=== PATIENT | female | born 1985 | race Two or more races ===

== ENCOUNTER 2018-10-09 23:20 | Emergency (ER) | payer BC, OTHER ==
[2018-10-09 23:43] VITALS: BP 101/62; PULSE 96; TEMP 98
--- NOTE | 2018-10-09 23:50 | PDOC ---
History of Present Illness - General Chief Complaint: Syncope/Near Syncope Stated Complaint: NEAR SYNCOPE Time Seen by Provider: 10/09/18 23:50 History Source: Patient Exam Limitations: No Limitations - History of Present Illness Initial Comments: 10/10/18 00:51 33 yo F with no significant PMhx presents after syncopal episode at home. She states that she was eating dinner when she went to pass a plate to dog when she was bitten. She has small laceration on hand. She proceeded to go to bathroom she felt light headed and passed out. She denies head trauma. She was out for a few seconds and EMS was called. Upon arrival during the interview she felt lightheaded again but no LOC. Denies CP,MALONE, SOB, abdominal pain, nausea or vomiting. Timing/Duration: 1-3 hours Past History - Past Medical History Allergies/Adverse Reactions: Allergies Allergy/AdvReac Type Severity Reaction Status Date / Time No Known Allergies Allergy Verified 10/09/18 23:23 Home Medications: Ambulatory Orders No Home Medications 0 dose .ROUTE UTDICT 05/04/13 Amoxicillin/Potassium Clav [Augmentin 875-125 Tablet] 1 each PO BID #14 tablet 10/10/18 Anemia: No Asthma: No Cancer: No Cardiac Disorders: No CVA: No COPD: No CHF: No Dementia: No Diabetes: No GI Disorders: No Disorders: No HTN: No Hypercholesterolemia: No Liver Disease: No Seizures: No Thyroid Disease: No - Surgical History Abdominal Surgery: Yes (GASTRIC SLEEVE) Appendectomy: No Cardiac Surgery: No Cholecystectomy: No GI Surgery: Yes (GASTRIC SLEEVE) Lung Surgery: No Neurologic Surgery: No Orthopedic Surgery: No - Suicide/Smoking/Psychosocial Hx Smoking History: Never smoked Hx Alcohol Use: No Substance Use Type: None Hx Substance Use Treatment: No Review of Systems - Review of Systems Able to Perform ROS?: Yes Is the patient limited Belarusian proficient: No Constitutional: No: Diaphoresis, Fever, Loss of Appetite HEENTM: No: Recent change in vision Respiratory: No: Cough, Orthopnea, Shortness of Breath, SOB with Exertion Cardiac (ROS): No: Chest Pain, Edema, Chest Tightness ABD/GI: No: Constipated, Diarrhea, Vomiting Musculoskeletal: No: Muscle Weakness Neurological: No: Headache, Weakness, Dizziness *Physical Exam - Vital Signs Last Vital Signs Temp Pulse Resp BP Pulse Ox 98.0 F 96 H 12 101/62 100 10/09/18 23:33 10/09/18 23:33 10/09/18 23:33 10/09/18 23:33 10/09/18 23:33 - Physical Exam General Appearance: Yes: Appropriately Dressed. No: Apparent Distress HEENT: positive: JANA, Normal Voice Neck: positive: Supple Respiratory/Chest: positive: Lungs Clear, Normal Breath Sounds. negative: Respiratory Distress Cardiovascular: positive: Regular Rate, S1, S2, Tachycardia. negative: Edema, JVD Vascular Pulses: Dorsalis-Pedis (R): 2+, Doralis-Pedis (L): 2+ Gastrointestinal/Abdominal: positive: Normal Bowel Sounds, Soft Musculoskeletal: positive: Normal Inspection. negative: CVA Tenderness Neurologic: positive: layer out II-XII NML intact, Fully Oriented, Alert, Normal Mood/ Affect, Motor Strength 10/03 ED Treatment Course - LABORATORY CBC & Chemistry Diagram: 10/10/18 01:04 10/10/18 01:04 Medical Decision Making - Medical Decision Making 10/10/18 01:22 33 yo F with no significant PMhx presents after syncopal episode at home after being bitten by dog. * Will send CBC, CMP , UA, ECGand urine test. * will also send for hand Xray and given augmentin x1 10/10/18 02:10 * XRAY was negative for fracture. * Will send with augmentin home follow up with PCP in one week. *DC/Admit/Observation/Transfer Diagnosis at time of Disposition: Dog bite Qualifiers: Encounter type: initial encounter Qualified Code(s): W54.0XXA - Bitten by dog, initial encounter Syncope Qualifiers: Syncope type: vasovagal syncope Qualified Code(s): R55 - Syncope and collapse - Discharge Dispostion Disposition: HOME Condition at time of disposition: Stable - Prescriptions Prescriptions: Amoxicillin/Potassium Clav [Augmentin 875-125 Tablet] 1 each PO BID #14 tablet - Referrals - Patient Instructions Printed Discharge Instructions: DI for Animal Bites Additional Instructions: Increase activity as tolerated. Resume regular diet. Follow up with primary in one week. If hand worsens or you develop fever or chills return to ER immediately. Please garbage pick up man the antibiotics from pharmacy and take as directed. - Post Discharge Activity
[2018-10-10 00:05] VITALS: BMI 35.2
--- NOTE | 2018-10-10 01:14 | PDOC ---
Documentation entered by Krys Marrero SCRIBE, acting as scribe for Noelle Correa MD. Noelle Correa MD: This documentation has been prepared by the Janes mancia Xhesika, SCRIBE, under my direction and personally reviewed by me in its entirety. I confirm that the documentation accurately reflects all work, treatment, procedures, and medical decision making performed by me. Attending Attestation - Resident Resident Name: Jonny Menchaca - ED Attending Attestation I have performed the following: I have examined & evaluated the patient, The case was reviewed & discussed with the resident, I agree w/resident's findings & plan, Exceptions are as noted - HPI HPI: 10/10/18 00:44 The patient is a 33 year old female with no significant past medical history of who presents to our ED via EMS with syncopal episode. The patient states she was at home, passing her friend's dog a plate of food. The dog lunged at her and bit her ring finger. She went to the bathroom to rinse her finger with water when she passed out. The patient states she was sitting on the floor and felt lightheaded. The patient denies chest pain, shortness of breath or dizziness. The patient denies fever, chills, nausea, diarrhea or constipation. The patient denies dysuria, frequency, urgency or hematuria. Allergy: NKDA Surgical History: GASTRIC SLEEVE Social History: None reported 10/10/18 01:04 - Physicial Exam PE: 10/10/18 01:04 GENERAL: The patient is in no acute distress. ENT: Ears normal, nares patent, oropharynx clear without exudates. Moist mucous membranes. NECK: Normal range of motion, supple LUNGS: Breath sounds equal, clear to auscultation bilaterally. No wheezes, and no crackles. HEART:Regular rate and rhythm, normal S1 and S2 without murmur, rub or gallop. ABDOMEN: Soft, nontender, normoactive bowel sounds. EXTREMITIES: Right ring finger, 2 mm skin break/punctate wound on dorsum and gonzalez surface of the middle phalynx of the ring finger, swelling noted. Normal range of motion NEUROLOGICAL: Cranial nerves II through XII grossly intact. Normal speech. No focal neurological deficits. SKIN: Warm, Dry, normal turgor, no rashes or lesions noted. - Medical Decision Making 10/10/18 01:06 33 yo F s/p syncopal evens s/p dog bite Dog is vaccinated and is her friend's pet (can be observed) Pt has no injuries s/p syncope, no preceding chest pain or palpitations Will do: Basic labs EKG Xray finger Pt will need abx for dog bite We have discussed reasons for return - increased swelling, erythema 10/10/18 01:22 EKG - NSR rate of 82 bpm, axis nml, intervals are normal, no st elevation or depression t wave inversion v2 10/10/18 02:01 Laboratory Tests 10/10/18 10/10/18 01:04 01:04 WBC 14.5 H Hgb 8.4 L Hct 28.6 L Plt Count 393 BUN 16 Creatinine 0.8
[2018-10-10] MEDS ORDERED: AMOX TR/POT CLAV 500MG/125MG TABLETS (FP) PO ONE (01:42)
[2018-10-10 01:52] LABS: BASO % 0.3 % (0-2.0); EOS % 0.7 % (0-4.5); HEMATOCRIT 28.6 % (32.4-45.2); HEMOGLOBIN 8.4 GM/dL (10.7-15.3); MCHC 29.6 g/dl (32.0-36.0); MEAN CELL VOLUME 65.3 fl (80-96); MEAN PLT VOLUME 8.6 fl (7.5-11.1); MONO % 5.8 % (3.8-10.2); NEUT % 83.2 % (42.8-82.8); PLATELET COUNT 393 K/MM3 (134-434); RBC 4.38 M/mm3 (3.60-5.2); RDW 17.7 % (11.6-15.6); WHITE BLOOD COUNT 14.5 K/mm3 (4.0-10.0)
[2018-10-10 01:54] LABS: MCH 19.3 pg (25.7-33.7)
[2018-10-10 02:00] LABS: CREATININE 0.8 mg/dL (0.55-1.3)
[2018-10-10 02:01] LABS: ALBUMIN 3.8 g/dl (3.4-5.0); BILIRUBIN,TOTAL 0.2 mg/dL (0.2-1); CALCIUM 8.8 mg/dL (8.5-10.1); POTASSIUM 4.1 mmol/L (3.5-5.1); TOT PROT 7.2 g/dl (6.4-8.2)
[2018-10-10 02:39] LABS: EPI CELLS 2.6 /HPF (0-5/HPF); HCG,QUALITATIVE URINE Negative; URINE APPEARANCE CLEAR; URINE BACTERIA 205.6 /hpf (NEGATIVE); URINE BILIRUBIN NEGATIVE (NEGATIVE); URINE CASTS 7 /lpf (0-8); URINE COLOR YELLOW; URINE GLUCOSE (UA) NEGATIVE (NEGATIVE); URINE KETONE TRACE (NEGATIVE); URINE LEUK ESTERASE TRACE (NEGATIVE); URINE NITRITE NEGATIVE (NEGATIVE); URINE PROTEIN 1+ (NEGATIVE); URINE RBC 8 /hpf (0-4); URINE WBC 5 /hpf (0-5)
[2018-10-10] MEDS ORDERED: AMOX TR/POT CLAV 500MG/125MG TABLETS (FP) ONE (02:39)
[2018-10-10 02:44] LABS: ANISOCYTOSIS 1+; PLATELET ESTIMATE ADEQUATE
--- NOTE | 2018-10-10 09:35 | EKG ---
Test Reason : Blood Pressure : / mmHG Vent. Rate : 082 BPM Atrial Rate : 082 BPM P-R Int : 150 ms QRS Dur : 084 ms QT Int : 376 ms P-R-T Axes : 057 020 028 degrees QTc Int : 439 ms NORMAL SINUS RHYTHM POSSIBLE LEFT ATRIAL ENLARGEMENT BORDERLINE ECG WHEN COMPARED WITH ECG OF 03-JAN-2013 15:23, NO SIGNIFICANT CHANGE WAS FOUND Confirmed by KATHY TORRES MD ([id number]) on 10/10/2018 9:35:29 AM Referred By: Confirmed By:KATHY TORRES MD
== END 2018-10-10 02:58 | disposition home or self-care (01) ==
LOC: JER 23:20
DX: S61.459A Open bite of unspecified hand, initial encounter (principal); R55 Syncope and collapse; W54.0XXA Bitten by dog, initial encounter; Y93.89 Activity, other specified; Y92.89 Other specified places as the place of occurrence of the external cause; Z98.84 Bariatric surgery status
CPT/HCPCS: 36415; 73140-TC-RT-FY; 80053; 81003; 84703; 85025; 93005; 93010; 99281-25